=== PATIENT | male | born 1960 | race Caucasian/White ===

== ENCOUNTER 2017-03-28 23:20 | Emergency (ER) | payer MEDICAID ==
[~2017-03-28] VITALS: Ht 180.3 cm; Wt 79.6 kg
[~2017-03-28 23:20] MED LIST: CEPH500C5 PO; CLOB30CR12 TP
[2017-03-29] MEDS ORDERED: POLOS RIGHTEYE (00:04)
[2017-03-29 00:13] VITALS: BP 132/81
== END 2017-03-29 00:14 | disposition home or self-care (01) ==
LOC: ER 23:20
DX: S05.01XA Injury of conjunctiva and corneal abrasion without foreign body, right eye, initial encounter (principal); J44.9 Chronic obstructive pulmonary disease, unspecified; Z59.0 Homelessness; W22.8XXA Striking against or struck by other objects, initial encounter; Y93.89 Activity, other specified; Y92.89 Other specified places as the place of occurrence of the external cause; Y99.8 Other external cause status
CPT/HCPCS: 99283

== ENCOUNTER 2017-10-03 05:20 | Emergency (ER) | payer MEDICAID ==
[~2017-10-03] VITALS: Ht 182.9 cm; Wt 77.5 kg
[~2017-10-03 05:20] MED LIST changes: -CEPH500C5 PO
[2017-10-03 05:29] VITALS: BP 108/76
[2017-10-03] MEDS ORDERED: CLOB15CR4 TOP (06:07)
[2017-10-03] MEDS ORDERED: SULF1TAB49 PO (06:07)
== END 2017-10-03 06:21 | disposition home or self-care (01) ==
LOC: ER 05:22
DX: L40.1 Generalized pustular psoriasis (principal); L08.9 Local infection of the skin and subcutaneous tissue, unspecified; J44.9 Chronic obstructive pulmonary disease, unspecified; F11.90 Opioid use, unspecified, uncomplicated; Z59.0 Homelessness; Z56.0 Unemployment, unspecified; Z98.890 Other specified postprocedural states
CPT/HCPCS: 99283

== ENCOUNTER 2018-04-13 15:36 | Emergency (ER) | payer MEDICAID ==
[~2018-04-13] VITALS: Ht 182.9 cm; Wt 170.0 kg
[~2018-04-13 15:36] MED LIST changes: +CLOB15CR4 TOP
[2018-04-13 15:55] VITALS: BP 112/67
[2018-04-13] MEDS ORDERED: amox tr/potassium clavulanate 875/125mg TAB PO ONE (16:40)
[2018-04-13] MEDS ORDERED: AMOX-580 PO (17:50)
== END 2018-04-13 17:57 | disposition home or self-care (01) ==
LOC: ER 15:37
DX: S61.432A Puncture wound without foreign body of left hand, initial encounter (principal); J44.9 Chronic obstructive pulmonary disease, unspecified; F17.210 Nicotine dependence, cigarettes, uncomplicated; F11.90 Opioid use, unspecified, uncomplicated; Z79.899 Other long term (current) drug therapy; Z59.0 Homelessness; Z56.0 Unemployment, unspecified; W54.0XXA Bitten by dog, initial encounter; Y93.89 Activity, other specified; Y92.89 Other specified places as the place of occurrence of the external cause; Y99.8 Other external cause status
CPT/HCPCS: 99283